=== PATIENT | female | born 1955 | race Caucasian/White ===

== ENCOUNTER 2019-04-15 15:12 | Emergency (ER) | payer SELFPAY ==
[~2019-04-15] VITALS: Ht 170.2 cm; Wt 73.5 kg
[2019-04-15] MEDS ORDERED: ONDANSETRON ODT8 MG PO (18:24)
[2019-04-15] MEDS ORDERED: LEVAQUIN750 MG PO (18:24)
[2019-04-15] MEDS ORDERED: FLAGYL500 MG PO (18:24)
== END 2019-04-15 18:48 | disposition home or self-care (01) ==
LOC: ED 15:12
DX: K57.32 Diverticulitis of large intestine without perforation or abscess without bleeding (principal)
CPT/HCPCS: 74177; 80053; 81001; 83690; 85025; 99284-25; J7030; Q9967

== ENCOUNTER 2019-11-01 08:14 | Day surgery (SDC) | payer MEDICARE ==
[~2019-11-01] VITALS: Ht 170.2 cm; Wt 68.0 kg
[~2019-11-01 08:14] MED LIST: FLAGYL500 MG PO; LEVAQUIN750 MG PO; ONDANSETRON ODT8 MG PO
[2019-11-01] MEDS ORDERED: GINKGO60 MG PO (08:38)
[2019-11-01] MEDS ORDERED: OMEGA 3 1,0001 EACH PO (08:38)
[2019-11-01] MEDS ORDERED: MULTI VITAMIN1 EACH PO (08:39)
[2019-11-01] MEDS ORDERED: TURMERIC500 M2 PO (08:39)
--- NOTE | 2019-11-01 10:38 | NUR ---
11/01/19 1038 Destiny Grimes 1028 PATIENT ARRIVES TO PACU SLEEPING, AWAKENS WITH VERBAL STIMULI, BACK TO SLEEP WHEN NOT STIMULATED. RESP EVEN AND UNLABORED, ROOM AIR SATS >93%. PATIENT C/O ABD CRAMPING WHEN AWAKE, ENCOURAGED TO PASS GAS. 1035 DR BHATT AT BEDSIDE TO TALK WITH PATIENT. WHEN AWAKE PATIENT CONTINUES TO C/O ABD CRAMPING. ENCOURAGED TO PASS GAS. PATIENT NOW ABLE TO PASS GAS. RESP EVEN AND UNLABORED, ROOM AIR SATS >93%.
--- NOTE | 2019-11-05 11:17 | PATH ---
[facility] [address] [place], [place] [address] Signed SPECIMEN(S): A COLON POLYP AT 15 CM SPECIMEN SOURCE: A. COLON POLYP AT 15 CM CLINICAL HISTORY: Diverticulosis, colon polyp. MICROSCOPIC DESCRIPTION: Histologic sections of all submitted blocks are examined by light microscopy. These findings, together with the gross examination, support the pathologic diagnosis. FINAL PATHOLOGIC DIAGNOSIS: Colon, polyp at 15 cm, polypectomy: - Hyperplastic polyp. - Negative for dysplasia or malignancy. NAL:cml:C2NR GROSS DESCRIPTION: The specimen, labeled "Magnolia Mitchell, 1," and designated on the requisition "colon polyp at 15 cm," is received in formalin and consists of one browning soft tissue fragment that measures 0.4 cm in greatest dimension. The specimen is entirely submitted in cassette (A1). FB (under the direct supervision of a pathologist) The Gross Description was prepared using a voice recognition system. The report was reviewed for accuracy; however, sound-alike word errors, addition and/or deletions may occur. If there is any question about this report, please contact Client Services. PERFORMING LABORATORY: The technical component was performed by [facility], [address] [place] [id number] (Candy Department Manager: Sandy Amor MD; CLIA# [id number]). [facility] [address] [address] (CLIA# [id number]). Diagnostician: Rosy Slade MD Pathologist Electronically Signed 11/05/2019 PATIENT NAME: MAGNOLIA MITCHELL PATHOLOGY DATE OF : 51 REPORT #: [id number] PHYSICIAN: CHRISTIAN FERRARO PCP: ANGELES DAY REPORT IS CONFIDENTIAL AND NOT TO BE RELEASED WITHOUT AUTHORIZATION [address] [place], [place] [address] Signed Copies: ~ PATIENT NAME: MAGNOLIA MITCHELL PATHOLOGY DATE OF : 51 REPORT #: [id number] PHYSICIAN: CHRISTIAN PATHOLOGY PCP: ANGELES DAY REPORT IS CONFIDENTIAL AND NOT TO BE RELEASED WITHOUT AUTHORIZATION
--- NOTE | 2019-11-05 18:28 | OR ---
[facility] [address] [place], [place] [address] Signed DATE OF OPERATION: 11/01/2019 SURGEON: Isabela Bhatt MD PREOPERATIVE DIAGNOSES: 1. Episodes of diverticulitis, last episode in April 2019. 2. Known history of diverticulosis. 3. History of hyperplastic polyp (2018). POSTOPERATIVE DIAGNOSES: 1. Extensive diverticulosis of left colon. 2. Probable hyperplastic polyp at 15 cm (excised). PROCEDURE: Total colonoscopy to cecum with cold snare polypectomy x1. ANESTHESIA: Intravenous sedation, fentanyl 150 mcg and Versed 5 mg. INDICATION: This 64-year-old white woman is formally a patient of TOÑITO Abraham, but does not have a primary care provider currently. She had an episode of significant diverticulitis in April 2019, confirmed by CT scan, treated with antibiotics, which resolved. She had a similar episode following that about a month after that, which resolved without any specific therapy. She is now reasonably free of left lower abdominal pain. She did undergo colonoscopy in 2018, where she was noted to have hyperplastic polyp. She is admitted at this time to undergo colonoscopy for surveillance; understands the risks of bleeding, infection, and perforation. FINDINGS: The prep was excellent. Complete colonoscopy was undertaken of the cecum. She had numerous diverticuli of the left colon and sigmoid. There was a polyp at 15 cm, most likely hyperplastic, which was excised. There were no other findings of concern. There was no sign of cancer. DESCRIPTION OF PROCEDURE: The patient was brought to the endoscopy suite and placed in lateral decubitus position, given intravenous sedation to the point of slurred speech and nystagmus. Digital rectal examination was normal. Electronically Signed By: ISABELA BHATT MD 11/05/19 1828 PATIENT NAME: MAGNOLIA MITCHELL OPERATIVE REPORT DATE OF : 51 REPORT #: [id number] PHYSICIAN: ISABELA BHATT MD PCP: ANGELES DAY REPORT IS CONFIDENTIAL AND NOT TO BE RELEASED WITHOUT AUTHORIZATION [facility] [address] [place], [place] [address] Signed An Olympus video colonoscope was passed in the rectum and manipulated throughout the colon noting numerous diverticula of the sigmoid and left colon. Scope was ultimately advanced to the cecum. The ileocecal valve and appendiceal orifice were normal. Scope was withdrawn from that point and examination throughout showed only diverticulosis, most dominantly in the left side and sigmoid area. There is a small hyperplastic-appearing polyp at 15 cm from the anal verge, which was excised with cold snare technique. Further withdrawal of scope allowed for retroflexed view, which was normal. The scope was removed and the patient was taken to the recovery room in good condition. CONCLUDING DIAGNOSES: 1. Extensive diverticulosis. No sign of active inflammation. 2. Polyps x1 at 15 cm, most likely hyperplastic. PLAN: Recommend repeat colonoscopy in 5 years, sooner if clinically indicated. She should maintain a high-fiber diet as well. MD LISET Haque/SPENCER /[id number] cc: TOÑITO Abraham Copies: ANGELES DAY ~ Electronically Signed By: ISABELA BHATT MD 11/05/19 1828 PATIENT NAME: MAGNOLIA MITCHELL OPERATIVE REPORT DATE OF : 51 REPORT #: [id number] PHYSICIAN: ISABELA BHATT MD PCP: ANGELES DAY REPORT IS CONFIDENTIAL AND NOT TO BE RELEASED WITHOUT AUTHORIZATION
== END 2019-11-01 11:15 | disposition home or self-care (01) ==
LOC: OPS 08:14 → DS 09:30 → OPS 11:15
PROVIDERS: Surgery
PROC: 0DBE8ZZ Excision of Large Intestine, Via Natural or Artificial Opening Endoscopic (ICD-10-PCS; principal; 2019-11-01 09:30)
DX: Z12.11 Encounter for screening for malignant neoplasm of colon (principal); K63.5 Polyp of colon; K57.30 Diverticulosis of large intestine without perforation or abscess without bleeding; Z86.010 Personal history of colon polyps; Z85.42 Personal history of malignant neoplasm of other parts of uterus
CPT/HCPCS: 88305; 99153; G0500; J2250; J3010; J7121

== ENCOUNTER 2022-09-22 11:49 | Emergency (ER) | payer MEDICARE ==
[~2022-09-22] VITALS: Ht 170.2 cm; Wt 65.4 kg
[~2022-09-22 11:49] MED LIST changes: +GINKGO60 MG PO; +MULTI VITAMIN1 EACH PO; +OMEGA 3 1,0001 EACH PO; +TURMERIC500 M2 PO
[2022-09-22] MEDS ORDERED: AMOX TR-K CLV1 EAC1 PO (13:55)
[2022-09-22 14:56] VITALS: BP 163/77
== END 2022-09-22 14:58 | disposition home or self-care (01) ==
LOC: ED 11:49
DX: K57.32 Diverticulitis of large intestine without perforation or abscess without bleeding (principal)
CPT/HCPCS: 36415; 74177; 80053; 81003; 83690; 85025; J0295; J7030; Q9967

== ENCOUNTER 2022-10-30 14:37 | Emergency (ER) | payer MEDICARE ==
[~2022-10-30] VITALS: Ht 170.2 cm; Wt 63.4 kg
--- OUTSIDE RECORDS SUMMARY | ~2022-10-30 | XMS | Continuity of Care Document ---
Demographics + + + | Address | [address] | | | [place] [address] | + + + | Preferred Language | Unknown | + + + | Marital Status | Never | + + + | Baptism Affiliation | Unknown | + + + | Race | White | + + + | Ethnic Group | Not or | + + + Author + + + | Author | [facility] | + + + | Organization | [facility] | + + + | Address | [address] | | | [place] [address] | + + + | Phone | | + + + Care Team Providers + + + + | Care Manager Float Name | Role | Phone | + + + + Unavailable | Unavailable | + + + + Unavailable | Unavailable | + + + + Allergies and Intolerances + + + + + + | date | description | facility | reaction | severity | + + + + + + | (no date) | No Known | [facility] | (no reaction) | (no severity) | | | Allergies | | | | + + + + + + Encounters No information. Functional Status No information. Immunizations No information. Medications + + + + | date | description | facility | + + + + | 2019-04-15 00:00 | [facility] | + + + + | 2019-04-15 00:00 | LEVOFLOXACIN | [facility] | + + + + | 2019-04-15 00:00 | ONDANSETRON | [facility] | + + + + | 2022-09-22 00:00 | AMOXICILLIN/POTASSIUM CLAV | [facility] | | | | | + + + + Problems + + + + | date | description | facility | + + + + | 2022-09-22 00:00 | Diverticulitis of sigmoid | [facility] | | | colon | | + + + + | 2022-09-22 11:50 | DVTRCLI OF LG INT W/O | [facility] | | | PERFORATION OR ABSCESS W/O | | | | B | | + + + + | 2022-09-22 11:50 | LOWER ABDOMINAL PAIN, | [facility] | | | UNSPECIFIED | | + + + + Procedures No information. Results/Labs +--------+--------+ +---------+--------+---------+ | test | date | facility | value | unit | notes | +--------+--------+ +---------+--------+---------+ + + | Result panel 1 | + + + + + + + + + | | 2022-09-22 | [facility] | YELLOW | (missing) | (missing) | | (unavailable | 12::07 [facility] | | | + + + + + + + + + | Result panel 2 | + + + + + +---------+ + + | | 2022-09-22 | [facility] | CLEAR | (missing) | (missing) | | (unavailable | 12:25:07 [facility] | | | + + + +---------+ + + + + | Result panel 3 | + + + + + + + + + | | 2022-09-22 | [facility] | NEGATIVE | (missing) | (missing) | | (unavailable | 12:25:07 [facility] | | | + + + + + + + + + | Result panel 4 | + + + + + + + + + | | 2022-09-22 | [facility] | NEGATIVE | (missing) | (missing) | | (unavailable | 12:25:07 [facility] | | | + + + + + + + + + | Result panel 5 | + + + + + + + + + | | 2022-09-22 | [facility] | NEGATIVE | (missing) | (missing) | | (unavailable | 12:25:07 [facility] | | | + + + + + + + + + | Result panel 6 | + + + + + + + + + | | 2022-09-22 | [facility] | <=1.005 | (missing) | (missing) | | (unavailable | 12:25:07 [facility] | | | + + + + + + + + + | Result panel 7 | + + + + + + + + + | | 2022-09-22 | [facility] | NEGATIVE | (missing) | (missing) | | (unavailable | 12:: | [facility] | | | + + + + + + + + + | Result panel 8 | + + + + + +-------+ + + | | 2022-09-22 | [facility] | 5.5 | (missing) | (missing) | | (unavailable | 12:25:07 [facility] | | | + + + +-------+ + + + + | Result panel 9 | + + + + + + + + + | | 2022-09-22 | [facility] | NEGATIVE | (missing) | (missing) | | (unavailable | [facility] | | | + + + + + + + + + | Result panel 10 | + + + + + + + + + | | 2022-09-22 | [facility] | NORMAL | (missing) | (missing) | | (unavailable | : [facility] | | | + + + + + + + + + | Result panel 11 | + + + + + + + + + | | 2022-09-22 | [facility] | NEGATIVE | (missing) | (missing) | | (unavailable | 12:25:07 [facility] | | | + + + + + + + + + | Result panel 12 | + + + + + + + + + | | 2022-09-22 | [facility] | NEGATIVE | (missing) | (missing) | | (unavailable | 12:25:07 [facility] | | | + + + + + + + + + | Result panel 13 | + + + + + +-------+ + + | | 2022-09-22 | [facility] | 7.1 | (missing) | (missing) | | (unavailable | 12:40:07 [facility] | | | + + + +-------+ + + + + | Result panel 14 | + + + + + +--------+ + + | | 2022-09-22 | [facility] | 56.5 | (missing) | (missing) | | (unavailable | 12:40:07 [facility] | | | + + + +--------+ + + + + | Result panel 15 | + + + + + +--------+ + + | | 2022-09-22 | [facility] | 30.9 | (missing) | (missing) | | (unavailable | 12:40:07 [facility] | | | + + + +--------+ + + + + | Result panel 16 | + + + + + +--------+ + + | | 2022-09-22 | [facility] | 10.0 | (missing) | (missing) | | (unavailable | 12:40:07 [facility] | | | + + + +--------+ + + + + | Result panel 17 | + + + + + +-------+ + + | | 2022-09-22 | [facility] | 2.0 | (missing) | (missing) | | (unavailable | 12:40:07 [facility] | | | + + + +-------+ + + + + | Result panel 18 | + + + + + +-------+ + + | | 2022-09-22 | [facility] | 0.6 | (missing) | (missing) | | (unavailable | 12:40:07 [facility] | | | + + + +-------+ + + + + | Result panel 19 | + + + + + +--------+ + + | | 2022-09-22 | [facility] | 4.80 | (missing) | (missing) | | (unavailable | [facility]40:07 [facility] | | | + + + +--------+ + + + + | Result panel 20 | + + + + + +------+---------+ + | | 2022-09-22 | [facility] | 96 | mg/dL | (missing) | | (unavailable | 12:40:07 [facility] | | | + + + +------+---------+ + + + | Result panel 21 | + + + + + +------+---------+ + | | 2022-09-22 | [facility] | 11 | mg/dL | (missing) | | (unavailable | [facility]40:07 [facility] | | | + + + +------+---------+ + + + | Result panel 22 | + + + + + +--------+---------+ + | | 2022-09-22 | [facility] | 0.89 | mg/dL | (missing) | | (unavailable | [facility]:40:07 [facility] | | | + + + +--------+---------+ + + + | Result panel 23 | + + + + + +--------+ + + | | 2022-09-22 | [facility] | 13.5 | (missing) | (missing) | | (unavailable | [facility]40:07 [facility] | | | + + + +--------+ + + + + | Result panel 24 | + + + + + +------+ + + | | 2022-09-22 | [facility] | 70 | (missing) | (missing) | | (unavailable | [facility]40:07 [facility] | | | + + + +------+ + + + + | Result panel 25 | + + + + + +---------+ + + | | 2022-09-22 | [facility] | 12.35 | (missing) | (missing) | | (unavailable | [facility]40:07 [facility] | | | + + + +---------+ + + + + | Result panel 26 | + + + + + +-------+ + + | | 2022-09-22 | [facility] | 138 | (missing) | (missing) | | (unavailable | [facility]40:07 [facility] | | | + + + +-------+ + + + + | Result panel 27 | + + + + + +-------+ + + | | 2022-09-22 | [facility] | 3.9 | (missing) | (missing) | | (unavailable | [facility]40:07 [facility] | | | + + + +-------+ + + + + | Result panel 28 | + + + + + +-------+ + + | | 2022-09-22 | [facility] | 100 | (missing) | (missing) | | (unavailable | [facility]40:07 [facility] | | | + + + +-------+ + + + + | Result panel 29 | + + + + + +------+ + + | | 2022-09-22 | [facility] | 30 | (missing) | (missing) | | (unavailable | [facility]40[facility]07 [facility] | | | + + + +------+ + + + + | Result panel 30 | + + + + + +--------+ + + | | 2022-09-22 | [facility] | 11.9 | (missing) | (missing) | | (unavailable | [facility]40[facility]07 [facility] | | | + + + +--------+ + + + + | Result panel 31 | + + + + + +-------+---------+ + | | 2022-09-22 | [facility] | 9.3 | mg/dL | (missing) | | (unavailable | [facility]40:07 [facility] | | | + + + +-------+---------+ + + + | Result panel 32 | + + + + + +-------+ + + | | 2022-09-22 | [facility] | 7.5 | (missing) | (missing) | | (unavailable | [facility]40:07 [facility] | | | + + + +-------+ + + + + | Result panel 33 | + + + + + +-------+ + + | | 2022-09-22 | [facility] | 3.4 | (missing) | (missing) | | (unavailable | [facility]40:07 [facility] | | | + + + +-------+ + + + + | Result panel 34 | + + + + + +--------+ + + | | 2022-09-22 | [facility] | 40.7 | (missing) | (missing) | | (unavailable | 12:40: [facility] | | | + + + +--------+ + + + + | Result panel 35 | + + + + + +-------+ + + | | 2022-09-22 | [facility] | 4.1 | (missing) | (missing) | | (unavailable | [facility]40:07 [facility] | | | + + + +-------+ + + + + | Result panel 36 | + + + + + +--------+ + + | | 2022-09-22 | [facility] | 0.83 | (missing) | (missing) | | (unavailable | [facility]40[facility]07 [facility] | | | + + + +--------+ + + + + | Result panel 37 | + + + + + +-------+ + + | | 2022-09-22 | [facility] | 0.3 | (missing) | (missing) | | (unavailable | [facility]40:07 [facility] | | | + + + +-------+ + + + + | Result panel 38 | + + + + + +------+ + + | | 2022-09-22 | [facility] | 12 | (missing) | (missing) | | (unavailable | [facility]40:07 [facility] | | | + + + +------+ + + + + | Result panel 39 | + + + + + +------+ + + | | 2022-09-22 | [facility] | 10 | (missing) | (missing) | | (unavailable | [facility]40:07 [facility] | | | + + + +------+ + + + + | Result panel 40 | + + + + + +------+ + + | | 2022-09-22 | [facility] | 85 | (missing) | (missing) | | (unavailable | [facility]40:07 [facility] | | | + + + +------+ + + + + | Result panel 41 | + + + + + +------+ + + | | 2022-09-22 | [facility] | 60 | (missing) | (missing) | | (unavailable | [facility]40:07 [facility] | | | + + + +------+ + + + + | Result panel 42 | + + + + + +--------+ + + | | 2022-09-22 | [facility] | 84.6 | (missing) | (missing) | | (unavailable | [facility]40:07 [facility] | | | + + + +--------+ + + + + | Result panel 43 | + + + + + +--------+ + + | | 2022-09-22 | [facility] | 28.1 | (missing) | (missing) | | (unavailable | [facility]40:07 [facility] | | | + + + +--------+ + + + + | Result panel 44 | + + + + + +--------+ + + | | 2022-09-22 | [facility] | 33.2 | (missing) | (missing) | | (unavailable | [facility]40:07 [facility] | | | + + + +--------+ + + + + | Result panel 45 | + + + + + +--------+ + + | | 2022-09-22 | [facility] | 12.7 | (missing) | (missing) | | (unavailable | [facility]40:07 [facility] | | | + + + +--------+ + + + + | Result panel 46 | + + + + + +-------+ + + | | 2022-09-22 | [facility] | 433 | (missing) | (missing) | | (unavailable | [facility]40[facility]07 [facility] | | | + + + +-------+ + + Social History No information. Vital Signs + + + +---------+ | date | measurement | value | units | + + + +---------+ | 2022-09-22 00:00 | BMI | 22.6 | kg/m2 | + + + +---------+ | 2022-09-22 00:00 | BP_diastolic | 77 | mmHg | + + + +---------+ | 2022-09-22 00:00 | BP_systolic | 163 | mmHg | + + + +---------+ | 2022-09-22 00:00 | heart_rate | 56 | /min | + + + +---------+ | 2022-09-22 00:00 | height_metric | 170.18 | cm | + + + +---------+ | 2022-09-22 00:00 | height_standard | 67 | in | + + + +---------+ | 2022-09-22 00:00 | o2_saturation | 99 | % | + + + +---------+ | 2022-09-22 00:00 | respiration_rate | 20 | /min | + + + +---------+ | 2022-09-22 00:00 | temperature_metric | 36.44 | C | | | | | | + + + +---------+ | 2022-09-22 00:00 | | 97.6 | F | | | temperature_standar | | | | | d | | | + + + +---------+ | 2022-09-22 00:00 | weight_metric | 65.4 | kg | + + + +---------+ | 2022-09-22 00:00 | weight_standard | 144.18 | lb | + + + +---------+"
--- OUTSIDE RECORDS SUMMARY | ~2022-10-30 | XMS | Continuity of Care Document ---
Demographics + + + | Address | [address] | | | [place] [address] | + + + | Preferred Language | Unknown | + + + | Marital Status | Never | + + + | Protestant Affiliation | Unknown | + + + | Race | White | + + + | Ethnic Group | Not or | + + + Author + + + | Author | [facility] | + + + | Organization | [facility] | + + + | Address | [address] | | | [place] [address] | + + + | Phone | | + + + Care Team Providers + + + + | Care Welder Fitter Apprentice Name | Role | Phone | + [...] | 2019-04-15 00:00 | [facility] | + + + + | 2019-04-15 00:00 | LEVOFLOXACIN | [facility] | + + + + | 2019-04-15 00:00 | ONDANSETRON | [facility] | + + + + | 2022-09-22 00:00 | AMOXICILLIN/POTASSIUM CLAV | [facility] | | | | | + + + + Problems + + + + | date | description | facility | + + + + | 2022-09-22 00:00 | Diverticulitis of sigmoid | [facility] | | | colon | | + [...]
[~2022-10-30 14:37] MED LIST changes: +AMOX TR-K CLV1 EAC1 PO
[2022-10-30 15:26] LABS: BASOPHILS 0.5 % (0-2); EOSINOPHILS 1.4 % (0-6); HEMATOCRIT 41.2 % (35.0-50.0); HEMOGLOBIN 14.1 g/dL (12.0-18.0); LYMPHOCYTES 19.6 % (24-44); MCH 28.4 (27-36); MCHC 34.2 g/dl (30-36); MCV 83.1 fl (81-99); MONOCYTES 10.5 % (0-12); PLATELET COUNT 387 K/uL (140-440); RBC 4.96 M/ul (4.3-5.7); RDW 12.5 (10.5-15.0)
[2022-10-30 15:39] LABS: ALBUMIN 3.5 g/dL (3.4-5.0); ALBUMIN/GLOBULIN RATIO 0.83 (1.1-2.4); ANION GAP 12.1 (7-21); BILIRUBIN, TOTAL 0.4 ng/dL (0.2-1.0); BUN/CREATININE RATIO 15.38 (6.0-28.6); CALCIUM 9.2 mg/dL (8.5-10.1); CREATININE, SERUM 0.65 mg/dL (0.55-1.02); POTASSIUM 4.1 mmol/L (3.5-5.1); PROTEIN, TOTAL 7.7 g/dL (6.4-8.2)
[2022-10-30 16:14] LABS: BILIRUBIN, URINE NEGATIVE (negative); BLOOD/HGB, URINE NEGATIVE (Negative); KETONE, URINE NEGATIVE (Negative); LEUK ESTERASE, URINE NEGATIVE (negative); NITRITE, URINE NEGATIVE (negative); PH, URINE 6.5 (5-7)
[2022-10-30] MEDS ORDERED: AMOX TR-K CLV1 EAC1 PO (16:28)
[2022-10-30] MEDS ORDERED: HYDROCODON-ACE1 EA10 PO (16:28)
[2022-10-30] MEDS ORDERED: ONDANSETRON ODT8 MG PO (16:28)
[2022-10-30] MEDS ORDERED: CLEOCIN HCL300 MG PO (16:33)
[2022-10-30 16:35] VITALS: BP 111/60
== END 2022-10-30 16:36 | disposition home or self-care (01) ==
LOC: ED 14:37
PROVIDERS: Family Medicine
DX: K57.92 Diverticulitis of intestine, part unspecified, without perforation or abscess without bleeding (principal); Z79.899 Other long term (current) drug therapy
CPT/HCPCS: 36415; 74018; 80053; 81003; 85025; J2270; J2405; J7030